=== PATIENT | female | born 1995 | race Caucasian/White ===

== ENCOUNTER 2019-11-12 20:34 | Emergency (ER) | payer BC, OTHER ==
[~2019-11-12] VITALS: Ht 157.5 cm; Wt 63.5 kg
[2019-11-12] MEDS ORDERED: AMOXICILLIN875 MG PO (22:40)
[2019-11-12 23:00] VITALS: BP 134/78
== END 2019-11-12 22:58 | disposition home or self-care (01) ==
LOC: ER 20:34
DX: S00.551A Superficial foreign body of lip, initial encounter (principal); W10.8XXA Fall (on) (from) other stairs and steps, initial encounter; Y93.01 Activity, walking, marching and hiking; Y92.89 Other specified places as the place of occurrence of the external cause; Y99.8 Other external cause status